=== PATIENT | female | born 1985 | race Caucasian/White ===

== ENCOUNTER 2019-05-20 15:24 | Emergency (ER) | payer BC, SELFPAY ==
[2019-05-20 15:28] VITALS: BP 117/85; PULSE 102; RESP 18; TEMP 37.8; O2SAT 100
--- NOTE | 2019-05-20 15:43 | ED.GENADULT ---
HPI - General Adult General Chief complaint: Upper Respiratory Infection Stated complaint: congestion/sore throat/cough Time Seen by Provider: 05/20/19 15:45 Source: patient and RN notes reviewed Mode of arrival: ambulatory Limitations: no limitations History of Present Illness HPI narrative: This is a 34 years old female presents to the office for an evaluation of cold/flu symptoms for 8days. Symptoms includes sinus congestion, sore throat, and cough. Cough is very bothersome at night time; Nyquil does not help at all. Her son is sick with similar symptoms. She does not smoke. She did not receive influenza vaccine for the season. She took DayQuil about an hour prior to arrival. Related Data Allergies Allergy/AdvReac Type Severity Reaction Status Date / Time No Known Allergies Allergy Verified 05/20/19 15:43 Review of Systems Review of Systems: Narrative: CONSTITUTIONAL: Reports fever, chills, achy ENT: Reports congestion, sore throat, otalgia. CARDIOVASCULAR: Denies chest pain, palpitation, edema. RESPIRATORY:Reports cough, chest tightness and burning when she breaths in cold air. GASTROINTESTINAL: Denies abdominal pain, nausea, vomiting, diarrhea. GENITOURINARY: Denies urinary symptoms SKIN: Denies rash MUSCULOSKELETAL: Denies acute back pain NEUROLOGIC: Denies lightheaded PMFSH Social History Social History Smoking status: Never smoker Comments At time of signature, I agree with nursing past medical, surgical, social and family history. There is no relevant family history pertinent to the presenting complaint. Exam Narrative: Exam Narrative: GENERAL: This is a well-nourished, well-developed patient, ill apparent but not in apparent distress. EYES: Sclera clear/white. Vision is grossly intact. EARS: External ears normal, auditory canals clear and without drainage, TMs normal without perforation. Hearing grossly intact. NOSE: External nose normal with no obvious nasal discharge, nares without redness, no rhinorrhea. THROAT: Mucous membranes moist, posterior pharynx clear. NECK: Neck supple, non-tender with lymphadenopathy CARDIOVASCULAR: Regular rate and rhythm without murmurs, gallops, or rubs. RESPIRATORY: Clear to auscultation with wheezing noted in inspiration but clear after she coughs. Breath sounds equal bilaterally. No rales, or rhonchi. Patient use of accessory muscle or pulse lip breathing. GASTROINTESTINAL: Abdomen soft, non-tender, nondistended. Bowel sounds are active. No guarding. SKIN: warm, intact with no suspicious lesions or rash, good texture and turgor. NEURO: awake, alert, and oriented to person, place and time. There were no obvious focal neurologic abnormalities. Steady gait [place] Coma Scale Eye Opening: Spontaneous 4 [place] Coma Scale Motor: Obeys Commands 6 [place] Coma Scale Verbal: Oriented 5 Course Vital Signs Vital signs: Vital Signs Temperature 100.1 F H 05/20/19 15:28 Pulse Rate 102 H 05/20/19 15:28 Respiratory Rate 18 05/20/19 15:28 Blood Pressure 117/85 05/20/19 15:28 Pulse Oximetry 100 05/20/19 15:28 Temperature 100.1 F H 05/20/19 15:28 Pulse Rate 102 H 05/20/19 15:28 Respiratory Rate 18 05/20/19 15:28 Blood Pressure 117/85 05/20/19 15:28 Pulse Oximetry 100 05/20/19 15:28 Medical Decision Making MDM Narrative Medical decision making narrative: Discharge instructions reviewed with patient, as well as provided in writing per nursing staff. The instructions also include specific and strict return/GO TO THE ER as well as f/u information. All questions have been answered, and the patient deny any further questions with discharge and discharge plan. Differential Diagnosis Differential Diagnosis: pneumonia, Allergic Rhinitis, Upper respiratory cough syndrome, Pharyngitis, Sinusitis, Bronchitis, otitis media, viral URI, Asthma/reactive airway disease, influenza Medical Records [facility]
== END 2019-05-20 16:05 | disposition home or self-care (01) ==
PROVIDERS: Emergency Provider Nurse Practitioner
DX: J06.9 Acute upper respiratory infection, unspecified (principal); R05 Cough
CPT/HCPCS: 87804; 99203; G0463